=== PATIENT | female | born 1950 | race Caucasian/White ===

== ENCOUNTER 2025-04-13 20:53 | Emergency (ER) | payer MEDICARE ==
[~2025-04-13] VITALS: Ht 154.9 cm; Wt 58.5 kg
--- NOTE | 2025-04-13 21:01 | EKG ---
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
[2025-04-13 21:22] LABS: BASOPHILS # (AUTO) 0.02 K/uL (0.00-0.20); BASOPHILS % (AUTO) 0.3 % (0.0-5.0); EOSINOPHILS # (AUTO) 0.18 K/uL (0.00-0.70); EOSINOPHILS % (AUTO) 2.4 % (0.0-8.0); HEMATOCRIT 41.8 % (36-48); IMMATURE GRANULOCYTE ABSOLUTE 0.02 K/uL (0-1); LYMPHOCYTES # (AUTO) 1.1 K/uL (1.0-4.8); LYMPHOCYTES % (AUTO) 14.8 % (21.0-51.0); MEAN CORPUSCULAR HGB CONC 34.7 g/dL (32.0-36.0); MEAN CORPUSCULAR VOLUME 80.7 fL (79-99); MONOCYTES # (AUTO) 0.4 K/uL (0.1-1.0); MONOCYTES % (AUTO) 5.6 % (3.0-13.0); NEUTROPHILS # (AUTO) 5.7 K/uL (1.8-7.7); NEUTROPHILS % (AUTO) 76.6 % (40.0-77.0); PLATELET COUNT (AUTO) 253 K/uL (130-400); RED BLOOD CELL COUNT(AUTO) 5.18 MIL/uL (4.00-5.50); RED CELL DISTRIBUTION WIDTH 12.5 % (11.0-15.5); WHITE BLOOD COUNT (AUTO) 7.4 K/uL (4.8-10.8)
[2025-04-13] MEDS: ondanSETRON 4MG INJ IVP ONE (21:22)
[2025-04-13 21:33] LABS: CREATININE 0.9 mg/dL (0.5-1.0); POTASSIUM 3.7 mmol/L (3.5-5.1)
[2025-04-13 21:52] LABS: BILIRUBIN,TOTAL 0.7 mg/dL (0.2-1.0)
[2025-04-13 21:53] LABS: ALBUMIN 4.2 g/dL (3.5-5.0); BILIRUBIN,DIRECT 0.1 mg/dL (0.0-0.3); TOTAL PROTEIN, SERUM 7.8 g/dL (6.0-8.3)
[2025-04-13] MEDS: 0.9%NACL 1000ML 1,000 ML IV ONE (22:28)
[2025-04-14] MEDS ORDERED: ONDA-243 PO (00:10)
--- NOTE | 2025-04-14 00:11 | ERN ---
ED Note History of Present Illness Stated Complaint: ABD PAIN, N/V DIZZINESS Chief Complaint: Multiple Complaints Time Seen by MD: 20:57 Time Seen by Midlevel: 20:58 Dictation: 74-year-old female presents to the emergency department due to reported having some chills, nausea, vomiting and diarrhea that began approximately 2 days ago. Patient states that she is concerned over having had some 4 episodes of vomiting since last night. She also reports having had 3 episodes of diarrhea. The diarrhea is described as being watery with a yellowish/brown coloration. There is no reported having had contact with anybody with similar symptoms it at this time, she denies having any abdominal pain. Upon initial evaluation, the patient presents mildly uncomfortable looking. 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 Past Medical History Past Medical History: Hypertension Surgical History: None History: Not Applicable RN Note Reviewed/Agreed w/PFSH: Yes Review of System Dictation Constitutional: Fever, chills Abdomen/GI: Nausea, vomiting, diarrhea Initial Vital Sign VS Vital Signs Date Time Temp Pulse Resp B/P (MAP) Pulse Ox O2 Delivery O2 Flow Rate FiO2 04/13/25 20:54 97.7 77 22 132/68 97 Room Air 04/13/25 22:17 0 21 Physical Exam Dictation General: awake, alert, NAD Head/Face: Normocephalic, atraumatic Eyes: PERRL, EOMI ENT: Oral mucosa moist Neck: Trachea midline, supple Cardiovascular: RRR, no edema Respiratory: Symmetrical, non-labored Abdomen: Soft, non-tender, non-distended, no guarding. Skin: Warm, dry, good turgor, no rash MS/Extremity: Pulses equal, no cyanosis, neurovascular intact, FROM Neuro: COAx4, GCS 15, steady gait, Psych: Normal behavior, mood, and affect normal Results (Laboratory/Radiology) Laboratory/Radiology Laboratory Tests Test 04/13/25 21:15 04/13/25 21:25 White Blood Count 7.4 K/uL (4.8-10.8) Red Blood Count 5.18 MIL/uL (4.00-5.50) Hemoglobin 14.5 g/dL (12.0-16.0) Hematocrit 41.8 % (36-48) Mean Corpuscular Volume 80.7 fL (79-99) Mean Corpuscular Hemoglobin 28.0 pg (27.0-33.0) Mean Corpuscular Hemoglobin Concent 34.7 g/dL (32.0-36.0) Red Cell Distribution Width 12.5 % (11.0-15.5) Platelet Count 253 K/uL (130-400) Mean Platelet Volume 10.0 fL (7.5-10.5) Immature Granulocyte % (Auto) 0.3 % (0-1) Neutrophils (%) (Auto) 76.6 % (40.0-77.0) Lymphocytes (%) (Auto) 14.8 % (21.0-51.0) L Monocytes (%) (Auto) 5.6 % (3.0-13.0) Eosinophils (%) (Auto) 2.4 % (0.0-8.0) Basophils (%) (Auto) 0.3 % (0.0-5.0) Neutrophils # (Auto) 5.7 K/uL (1.8-7.7) Lymphocytes # (Auto) 1.1 K/uL (1.0-4.8) Monocytes # (Auto) 0.4 K/uL (0.1-1.0) Eosinophils # (Auto) 0.18 K/uL (0.00-0.70) Basophils # (Auto) 0.02 K/uL (0.00-0.20) Absolute Immature Granulocyte (auto 0.02 K/uL (0-1) Nucleated Red Blood Cells 0.0 % (0.0-0.19) Sodium Level 132 mmol/L (136-145) L Potassium Level 3.7 mmol/L (3.5-5.1) Chloride Level 94 mmol/L (101-111) L Carbon Dioxide Level 27 mmol/L (21-32) Blood Urea Nitrogen 10 mg/dL (7-18) Creatinine 0.9 mg/dL (0.5-1.0) Glomerular Filtration Rate Calc 67 mL/min (>90) Random Glucose 137 mg/dL (70-105) H Total Calcium 9.6 mg/dL (8.5-10.1) Troponin I High Sensitivity 4 ng/L (4-50) Lipase 48 U/L (16-77) Total Bilirubin 0.7 mg/dL (0.2-1.0) Direct Bilirubin 0.1 mg/dL (0.0-0.3) Aspartate Amino Transf (AST/SGOT) 29 U/L (10-37) Alanine Aminotransferase (ALT/SGPT) 31 U/L (12-78) Alkaline Phosphatase 101 U/L (50-136) Total Protein 7.8 g/dL (6.0-8.3) Albumin 4.2 g/dL (3.5-5.0) ED Course ED Course Orders Procedure Category Date Status Time Vital Signs Per CPOE 04/13/25 Transmitted Routine 20:55 Saline Lock Iv CPOE 04/13/25 Transmitted 20:55 Cbc With Differential LAB 04/13/25 Complete 20:55 Lipase LAB 04/13/25 Complete 20:55 Urinalysis Profile LAB 04/13/25 Logged 20:55 12 Lead Ekg Tracing- EKG 04/13/25 Complete Technical 20:55 Troponin I High LAB 04/13/25 Complete Sensitivity 20:55 Basic Metabolic Panel LAB 04/13/25 Complete 20:55 Ondansetron 4mg Inj PHA 04/13/25 Complete (Zofran 4mg Inj) 21:30 Hepatic Function Panel LAB 04/13/25 Complete 21:42 0.9%Nacl 1000ml (Ns PHA 04/13/25 Complete 1000ml) 22:30 Current Medications Medications (Trade) Dose Ordered Sig/Cesar Route PRN Reason Start Time Stop Time Status Last Admin Dose Admin Ondansetron HCl (zoFRAN 4MG INJ) 4 mg ONCE ONCE IVP 04/13/25 21:30 04/13/25 21:31 DC 04/13/25 21:22 Sodium Chloride 1,000 ml @ 0 mls/hr ONCE ONCE IV 04/13/25 22:30 04/13/25 22:31 DC 04/13/25 22:28 Vital Signs Date Time Temp Pulse Resp B/P (MAP) Pulse Ox O2 Delivery O2 Flow Rate FiO2 04/13/25 23:29 97.7 72 16 131/53 97 Room Air* 0 21 04/13/25 22:17 72 16 129/71 98 Room Air* 0 21 04/13/25 20:54 97.7 77 22 132/68 97 Room Air Medical Decision Making MDM MDM: Differential diagnosis: Acute gastroenteritis, acute dehydration, food poisoning. Rationale: Tests considered and ordered secondary to shared decision making include: Previous outside records reviewed: Old ER visits. Risk of complication and/or morbidity or mortality of patient management: None Medications-Per medication reconciliation Need for hospitalization: Patient does not meet criteria for hospitalization. Need for emergency major/minor surgery: No There are no social concerns with this patient. Prescription drug management Prescriptions will include symptomatic care Patient's prior external medical records from other ER visits were reviewed by me as indicated. Prior testing and results from previous visits were reviewed. Prior tests were taken into account with medical decision making and resource utilization, independent historian/historians were used to obtain complete medical history. I independently interpreted the test that were performed, results were reviewed by me and considered findings on radiology if ordered. Medical management and examination interpretation discussions were had by me with other qualified healthcare professionals as indicated for the patient's care. DX & DISP Disposition: Discharge Departure Impression: Primary Impression: Acute gastroenteritis Condition: Stable Scripts Ondansetron (Ondansetron Odt) 4 Mg Tab.rapdis 4 MG PO Q8H PRN for NAUSEA/VOMITING, #15 TAB Prov: LUCIANO VACA 04/14/25 Referrals: SELF,REFERRAL (PCP) LUCIANO VACA Apr 14, 2025 00:11
[2025-04-14 00:19] VITALS: BP 124/59; PULSE 69; RESP 16; TEMP 97.7; O2SAT 97
== END 2025-04-14 00:20 | disposition home or self-care (01) ==
LOC: EDH 20:53
DX: K52.9 Noninfective gastroenteritis and colitis, unspecified (principal); I10 Essential (primary) hypertension; Z88.0 Allergy status to penicillin
CPT/HCPCS: 99284; 96374; 80076; 84484; 80048; 83690; 85025; 36415; 93005; J7030; J2405